=== PATIENT | female | born 2000 | race Two or more races ===

== ENCOUNTER 2021-01-10 15:16 | Emergency (ER) | payer SELFPAY ==
[~2021-01-10] VITALS: Ht 162.6 cm; Wt 67.1 kg
[2021-01-10] MEDS ORDERED: clonazePAM 0.5 MG TAB PO ONE (17:45)
[2021-01-10 18:01] VITALS: BP 148/88
== END 2021-01-10 18:15 | disposition home or self-care (01) ==
LOC: ER 15:30
DX: F41.1 Generalized anxiety disorder (principal)